=== PATIENT | male | born 1980 | race Hispanic/Latino ===

== ENCOUNTER 2020-11-27 15:59 | Day surgery (SDC) | payer OTHER ==
[~2020-11-27] VITALS: Ht 160 cm; Wt 78.0 kg
[2020-11-27 16:39] LABS: HEMATOCRIT 41.3 % (39.0-50.0); HEMOGLOBIN 13.9 g/dl (14.0-18.0); IMMATURE GRANULOCYTES 0.3 % (0.0-5.0); MEAN CELL VOLUME 91.6 fL CALC (80.0-100.0); MEAN CORPUSCULAR HGB 30.8 pG CALC (26.0-32.0); MEAN CORPUSCULAR HGB CONC 33.7 g/dL CAL (32.0-36.0); NEUT# 3.45 thou/uL (1.82-7.42); RED BLOOD COUNT 4.51 mill/uL (4.70-6.10); RED CELL DISTRI WIDTH 12.2 % (11.5-15.5)
[2020-11-27 17:09] LABS: ALBUMIN 4.5 g/dL (3.2-5.0); ALKALINE PHOSPHATASE 87 u/l (38-126); ANION GAP 12 (6-22 (CALC)); BILIRUBIN, TOTAL 0.6 mg/dL (0.0-1.4); BUN 13 mg/dL (9-20); BUN/CREATININE RATIO 16 (12-20 (CALC)); CARBON DIOXIDE 24 mmol/l (22-30); CHLORIDE 105 mmol/l (95-108); CREATININE 0.8 mg/dL (0.7-1.3); GFR > 60 ML/MIN (>=60 (CALC)); GFR FOR AFR.AMER. > 60 ML/MIN (>=60 (CALC)); SGOT/AST 26 u/l (17-59); SODIUM 136 mmol/l (137-146); TOTAL PROTEIN 7.8 g/dL (6.3-8.2)
[2020-11-27 17:14] LABS: ACT PARTIAL THROMBO TIME 23.5 SECONDS (20.0-32.5); INTERNATIONAL NORMALIZED RATIO 0.9 RATIO (0.7-1.3); PROTHROMBIN TIME 9.3 SECONDS (9.0-12.5)
[2020-11-27 17:43] LABS: URINE BILIRUBIN - DIPSTICK NEGATIVE (NEGATIVE); URINE BLOOD DIPSTICK NEGATIVE (NEGATIVE); URINE CLARITY CLEAR; URINE COLOR YELLOW; URINE GLUCOSE - DIPSTICK NEGATIVE (NEGATIVE); URINE KETONE NEGATIVE (NEGATIVE); URINE LEUK ESTERASE NEGATIVE (Negative); URINE NITRITE - DIPSTICK NEGATIVE (Negative); URINE PROTEIN - DIPSTICK NEGATIVE (NEG-TRACE); URINE SPECIFIC GRAVITY <=1.005; URINE UROBILINOGEN - DIPSTICK 0.2 E.U./dL (0.2)
[2020-11-27] MEDS ORDERED: HYDROCODONE BIT1 TA9 PO (20:53)
[2020-11-27] MEDS ORDERED: HYDROCO/APAP1 TA9 PO (20:55)
[2020-11-27 22:10] VITALS: BP 158/88
--- NOTE | 2020-11-27 22:10 | NUR ---
PT RECEIVED FROM PACU VIA STRETCHER ACCOMPANIED BY TWO SURGICAL NURSES. PT WALKED FROM STRETCHER TO BED. GAIT IS STEADY. ALERT AND ORIENTED X4. RESP EVEN AND UNLABORED. SKIN WARM AND CRY. LUNGS CLEAR BILAT. ABD SOFT AND NONDISTENDED WITH BOWEL SOUNDS PRESENT. LEFT LOWER ABD INCISION CDI WITH DERMABOND. NO BLEEDING OR HEMATOMA. NO LOWER EXT EDEMA NOTED. PEDAL PULSES PALPATED BILAT. IV SITE PATENT IN LEFT A.C. WITH LR AT 125CC/HR. SCD'S ARE ON BILAT. FREQUENT Q 15 MIN VITALS SET. URINAL AT BEDSIDE. FREQUENT ROUNDS MADE. CALL HOLLINS WITHIN REACH.
[2020-11-27 22:15] VITALS: BP 152/96
[2020-11-27 22:25] VITALS: BP 159/97
[2020-11-27 22:40] VITALS: BP 172/83
--- NOTE | 2020-11-27 23:15 | NUR ---
KELLEE FROM REGISTRATION AT BEDSIDE FOR INTERPRETATION. ALL ADMISSION QUESTIONS ANSWERED WITH KELLEE AT BEDSIDE. VSS. RESP EVEN AND UNLABORED. NO DISTRESS NOTED. LEFT LOWER ABD INCISION REMAINS CDI. OFFERS NO COMPLAINTS AT THIS TIME. FREQUENT ROUNDS MADE. CALL HOLLINS WITHIN REACH.
[2020-11-27 23:45] VITALS: BP 141/85
--- NOTE | 2020-11-28 00:10 | NUR ---
PT AWAKE RESTING IN BED. RESP EVEN AND UNLABORED. IV SITE PATENT. NSS AT 125CC/HR. ABD INCISION CDI WITH NO BLEEDING OR HEMATOMA. PT TOLERATING CLEAR LIQUIDS WITHOUT ANY DIFFICULTY. SCD'S ARE ON. FREQUENT ROUNDS MADE . CALL HOLLINS WITHIN REACH.
[2020-11-28 01:00] VITALS: BP 135/72
--- NOTE | 2020-11-28 01:09 | NUR ---
PT AWAKE RESTING IN BED. MEDICATED WITH DILAUDID 1MG IV FOR LEFT LOWER ABD DISCOMFORT A 7 ON PAIN SCALE. IV SITE PATENT NSS AT 125CC/HR. RESP EVEN AND UNLABORED. VSS. FREQUENT ROUNDS MADE. CALL HOLLINS WITHIN REACH.
[2020-11-28 03:43] VITALS: BP 139/79
--- NOTE | 2020-11-28 04:30 | NUR ---
RESTING IN BED WITH EYES CLOSED. RESP EVEN AND UNLABORED. VOIDING CLEAR YELLOW URINE WITHOUT ANY DIFFICULTY. IV SITE PATENT. ASSESSMENT UNCHANGED. FREQUENT ROUNDS MADE. CALL HOLLINS WITHIN REACH.
[2020-11-28 07:22] VITALS: BP 154/88
--- NOTE | 2020-11-28 07:42 | NUR ---
ASSESSMENT DONE. PATIENT IS ALERT AND OREINT X3. SCD IN LEGS. PO FLUIDS PROVIDED. ABD INCISION WITH DERMABOND IN PLACE CDI. LUNGS SOUND CLEAR. ASSISTED PATIENT TO SIT IN THE RECLINER. PATIENT STATED PAIN IN ABD 04/11. MEDICATED PATIENT WITH OXYCODONE. PATIENT DENIES ANY OTHER NEEDS AT THIS TIME. CALL LIGHT IN REACH.
--- NOTE | 2020-11-28 10:45 | NUR ---
Discharge instructions given PER DR. RAMIREZ ORDERS IN CHART. . Patient verbalizes understanding of same. Discharged in stable condition via Wheelchair to Home with friends. All belongings sent with pt.
== END 2020-11-28 10:45 | disposition home or self-care (01) | DRG 352 ==
LOC: ED 15:59 → ORM 17:41 → MS2 21:46 → ORM 11-28 10:45
PROVIDERS: ATTEND Surgery
PROC: 0YU60JZ Supplement Left Inguinal Region with Synthetic Substitute, Open Approach (ICD-10-PCS; principal; 2020-11-27)
DX: K40.30 Unilateral inguinal hernia, with obstruction, without gangrene, not specified as recurrent (principal); Z20.822 Contact with and (suspected) exposure to COVID-19
CPT/HCPCS: C9290; J0131; J2710